=== PATIENT | male | born 1945 | race Caucasian/White ===

== ENCOUNTER → 2018-12-25 | Outpatient (CLI) | payer OTHER ==
[~2018-12-25] MED LIST: CONTRAST GIVEN. MC PRN; IOHEXOL 240 MG/ML 50ML VIAL. PO ONE; IOHEXOL 300 MG/ML 100ML VIAL. IV ONE
--- NOTE | 2018-12-25 16:12 | RAD ---
Examination: CT ABD PELV W/ORAL IV CONTRAST History: Abnormal weight loss, rectosigmoid cancer Comparison/Correlation: 06/17/2012 CT abdomen and pelvis with contrast Findings: Axial images of the abdomen and pelvis were obtained following oral and IV contrast. Sagittal and coronal reformatted images were provided. Mild gravity dependent atelectasis at the lung bases noted. Mild emphysematous involving the lung bases noted. Liver, spleen, pancreas, adrenal glands, and kidneys are normal. Gallbladder fossa is unremarkable. No ascites or pelvic free fluid. Moderate to large quantity of stool in the colon is present. No inflammatory change about the cecum. Appendix is unremarkable. Suture material is present at the expected rectosigmoid level. No enlarged abdominal or pelvic lymph nodes. Bladder is unremarkable. Prostate gland is enlarged measuring 5.3 cm x 4 point by 5.1 cm longitudinal. Severe L4-5 disc space narrowing is present. Degenerative changes of the facet joints of the lower lumbar spine are present. A 2.6 cm diameter infrarenal abdominal aortic aneurysm is present. Impression: No acute inflammatory process or findings to suggest recurrent mass. No enlarged lymph nodes. Hepatomegaly. Small fusiform infrarenal abdominal aortic aneurysm. PQRS Compliance Statement: One or more of the following individualized dose reduction techniques were utilized for this examination: 1. Automated exposure control 2. Adjustment of the mA and/or kV according to patient size 3. Use of iterative reconstruction technique Electronically signed by: Cameron Greenberg MD (12/25/2018 4:10 PM) [facility]
== END | disposition home or self-care (01) ==
LOC: CT 08:06
PROVIDERS: ATTEND Internal Medicine
DX: I71.4 Abdominal aortic aneurysm, without rupture (principal); R16.0 Hepatomegaly, not elsewhere classified; J98.11 Atelectasis; J43.9 Emphysema, unspecified; N40.0 Benign prostatic hyperplasia without lower urinary tract symptoms; M48.061 Spinal stenosis, lumbar region without neurogenic claudication; M47.816 Spondylosis without myelopathy or radiculopathy, lumbar region
CPT/HCPCS: 74177; Q9966; Q9967